=== PATIENT | female | born 1935 | race African-American/Black ===

== ENCOUNTER 2022-09-05 16:31 | Emergency (ER) | payer OTHER ==
[~2022-09-05] VITALS: Ht 167.6 cm; Wt 53.5 kg
--- NOTE | 2022-09-05 16:45 | NUR ---
[id number], from home, altered than usual, currently Dx UTI. Pt placed in bed and connected to monitor. breathing even and unlabored. awaiting for md harmon.
--- NOTE | 2022-09-05 17:11 | NUR ---
IV ESTABLISHED LEFT FOREARM 20G. BLOOD DRAWN AND SENT TO LAB INCLUDING CULTURES.
--- NOTE | 2022-09-05 17:14 | NUR ---
COVID SWAB COLLECTED AND SENT TO LAB
--- NOTE | 2022-09-05 17:20 | NUR ---
MOVE SHEET SUBMITTED.
[2022-09-05 17:35] LABS: BASOPHILS % (AUTO) 0.3 % (0.0-2.0); EOSINOPHILS % (AUTO) 0.9 % (0.0-6.0); HEMATOCRIT 36 % (33-45); HEMOGLOBIN 11.7 g/dL (11.5-14.8); LYMPHOCYTES # (AUTO) 1.4 K/uL (0.8-4.8); LYMPHOCYTES % (AUTO) 15.6 % (20.0-44.0); MEAN CORPUSCULAR HGB CONC 33 g/dl (31.0-36.0); MEAN CORPUSCULAR VOLUME 97 fL (82-100); MONOCYTES # (AUTO) 0.8 K/uL (0.1-1.30); MONOCYTES % (AUTO) 9.2 % (2.0-12.0); NEUTROPHILS # (AUTO) 6.6 K/uL (1.8-8.9); PLATELET COUNT (AUTO) 162 K/uL (150-450); RED BLOOD CELL COUNT(AUTO) 3.68 MIL/uL (4.0-5.2); WHITE BLOOD COUNT (AUTO) 8.9 K/uL (4.3-11.0)
[2022-09-05 17:47] LABS: CALCIUM, SERUM 9.1 mg/dL (8.5-10.1); CARBON DIOXIDE 23 mmol/L (21-32); CHLORIDE 104 mmol/L (98-107); CREATININE 1.5 mg/dL (0.6-1.3); GLUCOSE 98 mg/dL (74-106); POTASSIUM 4.9 mmol/L (3.5-5.1); SODIUM SERUM 135 mmol/L (136-145); UREA NITROGEN, BLOOD 35 mg/dL (7-18)
--- NOTE | 2022-09-05 17:48 | NUR ---
speaking with daughter at bedside.
[2022-09-05] MEDS ORDERED: LORAZEPAM INJ 2 MG/ML VIAL ONE (17:51)
[2022-09-05 17:52] LABS: ALANINE AMINOTRANSFERASE 22 U/L (12-78); ALBUMIN 3.4 g/dL (3.4-5.0); ALKALINE PHOSPHATASE 102 U/L (46-116); ASPARTATE AMINOTRANSFERASE 36 U/L (15-37); BILIRUBIN,DIRECT 0.1 mg/dL (0.0-0.2); BILIRUBIN,TOTAL 0.5 mg/dL (0.2-1.0)
[2022-09-05 17:54] LABS: ALCOHOL, BLOOD < 3 mg/dL (0-0)
[2022-09-05 17:59] LABS: THYROID STIMULATING HORMONE 3.297 uIU/mL (0.358-3.74)
[2022-09-05] MEDS ORDERED: LORAZEPAM INJ 2 MG/ML VIAL IV ONE (18:00)
[2022-09-05] MEDS ORDERED: IV NS 0.9% 1,000 ML IV ONE (18:30)
--- NOTE | 2022-09-05 18:55 | NUR ---
urine sample collected and sent to lab
[2022-09-05] MEDS ORDERED: PIPERACILLIN /TAZOBACTAM 3.375 G in IV D5W 50 ML IV ONE (19:00)
[2022-09-05] MEDS ORDERED: IV NS 0.9% 1,000 ML BAG IV ONE (19:00)
--- NOTE | 2022-09-05 19:20 | NUR ---
Pt is noted in bed responsive but forgetful as report is received from the off going nurse that she came from home with Diagnose off UTI and Sepsis and has history off Dementia . Pt care continue with IVF therapy in progress as she has completed Antibiotic therapy dose as ordered.
[2022-09-05 19:28] LABS: BILIRUBIN,URINE NEGATIVE (NEGATIVE); COLOR,URINE YELLOW (YELLOW); LEUKOCYTE ESTERASE ,URINE NEGATIVE (NEGATIVE); NITRITE, URINE NEGATIVE (NEGATIVE); PH,URINE 5.5 (5.0-8.0); PROTEIN,URINE TRACE mg/dl (NEGATIVE); UGLUCOSE NEGATIVE (NEGATIVE); UROBILINOGEN,URINE 0.2 EU/dL (0.2)
--- NOTE | 2022-09-05 19:39 | NUR ---
DAUGHTER SHERRELL [phone]
[2022-09-05 19:45] LABS: BACTERIA,URINE Few /HPF (None Seen); CALCIUM OXALATE CRYSTALS,UR Moderate /HPF (None Seen); HYALINE CASTS, URINE Few /LPF (None Seen); RBC,URINE 0-2 /HPF (0-2); SQUAMOUS EPITHELIAL CELL,UR Few /HPF (None Seen); WBC,URINE 0-2 /HPF (0-3)
--- NOTE | 2022-09-05 21:30 | NUR ---
Pt remain forgetful as she has completed her IVF therapy. Pt care continue.
--- NOTE | 2022-09-05 22:47 | NUR ---
PT GOT ACCEPTED AT [facility] UNDER CARE OF DR WAGNER GOING TO [id number] # FOR REPORT: [phone] [facility] ETA: AT 0000
--- NOTE | 2022-09-05 23:10 | NUR ---
Pt care continue with daughter Emma at bedside as try given report to [facility] but was told to called back as pt will be transferred out to [facility], under the care off DR. Corcoran and will be going to Room 2817B .
[2022-09-05 23:56] VITALS: BP 135/51
--- NOTE | 2022-09-06 00:20 | NUR ---
Pt is noted off the unit by [facility] with daughter Magi at bedside and REBECCA Uribe at [facility] is given report as pt is going to Room 2817B.
== END 2022-09-06 00:36 | disposition short-term general hospital (02) ==
LOC: ER 16:32
DX: A41.9 Sepsis, unspecified organism (principal); R65.20 Severe sepsis without septic shock; J18.9 Pneumonia, unspecified organism; G93.40 Encephalopathy, unspecified; Z20.822 Contact with and (suspected) exposure to COVID-19
CPT/HCPCS: 99291; 96365; 96375; 93005; 71045; 70450; 85025; 80048; 87040 ×2; 87086; 83605 ×2; 80076; 81001; 36415; 84443; 84484; 87081; 82962; 87426; 80320; J2060; J2543 ×2; J7060 ×2; A4223; C9803; G0480